=== PATIENT | female | born 1990 | race Caucasian/White ===

== ENCOUNTER 2022-02-10 17:27 | Emergency (ER) | payer MEDICAID ==
[~2022-02-10] VITALS: Ht 162.6 cm; Wt 72.1 kg
[2022-02-10 18:00] VITALS: BP 145/99
--- NOTE | 2022-02-10 18:07 | NUR ---
CAROL. HANDED ON URINE CUP.
--- NOTE | 2022-02-10 18:38 | NUR ---
PT CALLED BY , NO ANSWER
[2022-02-10 22:02] LABS: BASOPHILS # (AUTO) 0.1 K/uL (0.00-0.22); BASOPHILS % (AUTO) 0.6 % (0.0-2.0); EOSINOPHILS # (AUTO) 0.2 K/uL (0-0.4); EOSINOPHILS % (AUTO) 2.3 % (0.0-4.0); HEMATOCRIT 42.1 % (36-48); HEMOGLOBIN 13.9 g/dL (12.0-16.0); LYMPHOCYTES # (AUTO) 2.9 K/uL (2.5-16.5); LYMPHOCYTES % (AUTO) 34.4 % (20.5-51.1); MEAN CORPUSCULAR HEMOGLOBIN 28 pg (27-31); MEAN CORPUSCULAR HGB CONC 33 g/dL (33-37); MEAN CORPUSCULAR VOLUME 85.8 fL (80-94); MONOCYTES # (AUTO) 0.4 K/uL (0.8-1.0); MONOCYTES % (AUTO) 5.2 % (1.7-9.3); NEUTROPHILS # (AUTO) 4.9 K/uL (1.8-7.7); NEUTROPHILS % (AUTO) 57.5 % (42.2-75.2); PLATELET COUNT (AUTO) 324 K/uL (140-450); RED BLOOD CELL COUNT(AUTO) 4.91 MIL/uL (4.20-5.40); RED CELL DISTRIBUTION WIDTH 15.2 % (11.6-13.7); WHITE BLOOD COUNT (AUTO) 8.5 K/uL (4.8-10.8)
[2022-02-10 22:17] LABS: ANION GAP 13.5 (8-16); CREATININE 0.7 mg/dL (0.6-1.3); POTASSIUM 3.5 mmol/L (3.5-5.1)
[2022-02-10 23:42] VITALS: BP 160/90
--- NOTE | 2022-02-10 23:43 | NUR ---
Patient discharged with v/s stable. Written and verbal after care instructions given and explained. Patient verbalized understanding. Ambulatory with steady gait. All questions addressed prior to discharge. Advised to follow up with PMD.
== END 2022-02-10 23:43 | disposition home or self-care (01) ==
LOC: MED 17:27
DX: R07.9 Chest pain, unspecified (principal); R03.0 Elevated blood-pressure reading, without diagnosis of hypertension; R20.0 Anesthesia of skin; F15.90 Other stimulant use, unspecified, uncomplicated
CPT/HCPCS: 36415; 80048; 84484; 85025; 93005; 99284

== ENCOUNTER 2022-05-05 07:55 | Emergency (ER) | payer MEDICAID ==
[~2022-05-05] VITALS: Ht 160 cm; Wt 77.1 kg
[2022-05-05 08:18] VITALS: BP 150/97
--- NOTE | 2022-05-05 08:22 | NUR ---
PT AMBULATED TO LOBBY
--- NOTE | 2022-05-05 08:34 | NUR ---
31/F WALKED IN C/O B/L LEG PAIN, MORE PAINFUL TO THE LEFT SIDE S/P FALL 2 DAYS AGO. PT STATES BEING SEEN AT [facility] AND WAS DC WITH FX TO LEFT FOOT. REPORTS 9/10 SHARP AND CONSTANT PAIN. PT ALSO REQUESTING TO BE TESTED FOR STI, C/O DISCHARGE AND ODOR ONSET 3 DAYS. AAO4, AMBULATORY, VITALS STABLE, NO ACUTE DISTRESS NOTED. PMH: DENIES.
--- NOTE | 2022-05-05 09:20 | NUR ---
PT AMBULATED TO ER BED 12
[2022-05-05] MEDS ORDERED: AZITHROMYCIN 250 MG TAB PO ONE (09:45)
[2022-05-05] MEDS ORDERED: cefTRIAXone 500 MG in LIDOCAINE MPF 1% 1 ML IM ONE (09:45)
[2022-05-05] MEDS ORDERED: cefTRIAXone 500 MG VIAL ONE (09:52)
[2022-05-05] MEDS: KETOROLAC 30 MG/ML VIAL IM ONE ×2 (09:54→10:09)
--- NOTE | 2022-05-05 10:09 | NUR ---
PATIENT REFUSED TORADOL INJ. ERMD MADE AWARE
[2022-05-05 10:24] LABS: APPEARANCE,URINE CLEAR (CLEAR); BILIRUBIN,URINE NEGATIVE (NEGATIVE); BLOOD, URINE NEGATIVE (NEGATIVE); COLOR,URINE YELLOW (YELLOW); LEUKOCYTE ESTERASE ,URINE NEGATIVE (NEGATIVE); NITRITE, URINE NEGATIVE (NEGATIVE); PH,URINE 6.5 (5.0-9.0); UGLUCOSE NEGATIVE (NEGATIVE)
[2022-05-05] MEDS ORDERED: MORPHINE SULFATE 4 MG/ML SYR IM ONE (11:40)
[2022-05-05] MEDS ORDERED: HYDR-5191 PO (11:53)
[2022-05-05] MEDS ORDERED: IBUP-2213 PO (11:53)
--- NOTE | 2022-05-05 11:53 | NUR ---
BALDO MADE AWARE, ADMIN 3MG PER PT REQUEST
[2022-05-05 12:05] VITALS: BP 137/75
== END 2022-05-05 12:05 | disposition home or self-care (01) ==
LOC: MED 07:55
DX: S82.892A Other fracture of left lower leg, initial encounter for closed fracture (principal); S82.891A Other fracture of right lower leg, initial encounter for closed fracture; X58.XXXA Exposure to other specified factors, initial encounter; Y93.89 Activity, other specified; Y92.89 Other specified places as the place of occurrence of the external cause; Y99.8 Other external cause status
CPT/HCPCS: 73610; 81003; 81025; 86703; 96372; 99284; J0696; J1885; J2270

== ENCOUNTER 2022-05-12 05:10 | Emergency (ER) | payer MEDICAID ==
[~2022-05-12] VITALS: Ht 160 cm; Wt 77.1 kg
[~2022-05-12 05:10] MED LIST: HYDR-5191 PO; IBUP-2213 PO
[2022-05-12 05:14] VITALS: BP 150/92
--- NOTE | 2022-05-12 05:28 | NUR ---
PT TO BED #8
[2022-05-12] MEDS ORDERED: HYDROcodone/APAP 5/325 MG 1 TAB TAB PO ONE (05:30)
[2022-05-12] MEDS ORDERED: ACET-5629 PO ×2 (05:37→06:04)
--- NOTE | 2022-05-12 05:47 | NUR ---
32YR OLD FEMALE BIB SELF C/O L ANKLE PAIN. PT WAS SEEN ON THE FOR POSS FX OF EXT. S/P FALL. PT WAS FIBERGLASS SPLINTED AND REMOVED [id number] DR APPROVAL. PT STATES HAVING PAIN WHEN AMBULATE. PAIN LEVEL 10/10. GOOD CAP REFILL . NDKA
--- NOTE | 2022-05-12 05:47 | NUR ---
POSTERIOR SHORT LEG SPLINT APPLIED TO LLE, +CMS BEFORE AND AFTER APPLICATION
== END 2022-05-12 06:00 | disposition home or self-care (01) ==
LOC: MED 05:10
DX: S92.101A Unspecified fracture of right talus, initial encounter for closed fracture (principal); X58.XXXA Exposure to other specified factors, initial encounter; Y93.89 Activity, other specified; Y92.89 Other specified places as the place of occurrence of the external cause; Y99.8 Other external cause status
CPT/HCPCS: 29515; 73610; 99283; Q0092

== ENCOUNTER 2022-08-31 11:35 | Emergency (ER) | payer MEDICAID ==
[~2022-08-31] VITALS: Ht 162.6 cm; Wt 74.8 kg
[~2022-08-31 11:35] MED LIST changes: +ACET-5629 PO
[2022-08-31 11:39] VITALS: BP 111/63
[2022-08-31] MEDS ORDERED: IBUP-2213 PO (13:01)
--- NOTE | 2022-08-31 14:14 | NUR ---
PT REFUSED CRUTCHES. ERMD VEGA AWARE, PT EDUCATED ON NEED TO REDUCE WEIGHT ON LEG AND USE CRUTCHES. PT STILL REFUSED CRUTCHES.
[2022-08-31 14:36] VITALS: BP 106/76
--- NOTE | 2022-08-31 14:38 | NUR ---
Patient discharged with v/s stable. Written and verbal after care instructions given and explained. Patient alert, oriented and verbalized understanding of instructions. Ambulatory with steady gait. All questions addressed prior to discharge. ID band removed. Patient advised to follow up with PMD. Rx of MOTRIN, HYDROCODONE given. Patient educated on indication of medication including possible reaction and side effects. Opportunity to ask questions provided and answered.
== END 2022-08-31 14:36 | disposition home or self-care (01) ==
LOC: MED 11:35
DX: S92.132A Displaced fracture of posterior process of left talus, initial encounter for closed fracture (principal); R20.2 Paresthesia of skin; Z79.899 Other long term (current) drug therapy; Z79.1 Long term (current) use of non-steroidal anti-inflammatories (NSAID); Z79.891 Long term (current) use of opiate analgesic; W18.39XA Other fall on same level, initial encounter; Y92.89 Other specified places as the place of occurrence of the external cause; Y93.89 Activity, other specified; Y99.8 Other external cause status
CPT/HCPCS: 29515; 73130; 73610; 99284